=== PATIENT | male | born 1950 | race Caucasian/White ===

== ENCOUNTER 2018-01-20 10:38 | Day surgery (SDC) | payer MEDICARE ==
[~2018-01-20 10:38] MED LIST: CHLORHEXIDINE 0.12% 15 ML MOUTHWASH. SWSP; DEXAMETHASONE SOD PHOS 20 MG/5 ML VIAL.; GELATIN SPONGE SIZE 12-7MM SPONGE.; LIDOCAINE 1% PF 2 ML VIAL. ID; LIDOCAINE 1% PF 5 ML VIAL.; MORPHINE SULFATE 4 MG/ML DISP.SYRIN. IV; ONDANSETRON PF 4 MG/2 ML VIAL.; ONDANSETRON PF 4 MG/2 ML VIAL. IV; PROCHLORPERAZINE 10 MG/2 ML VIAL. IV; PROPOFOL 20 ML IV; ROCURONIUM 50 MG/5 ML VIAL.; SEVOFLURANE 31 TO 60 MINUTES. IH; SUCCINYLCHOLINE 200 MG/10 ML VIAL.; ceFAZolin 2GM PREMIX 2 GM/50 ML BAG IV; fentaNYL PF VIAL 100 MCG/2 ML VIAL; fentaNYL PF VIAL 100 MCG/2 ML VIAL IV
[2018-01-20 11:22] LABS: POC GLUCOSE 132 mg/dL (70-99)
[2018-01-20] MEDS: IV RINGERS,LACTATED 1000ML 1,000 ML IV (11:25)
[2018-01-20] MEDS ORDERED: ESMOLOL 100 MG/10 ML VIAL. IV (12:25)
[2018-01-20] MEDS: BUPIVAC MPF-EPI 0.5%-1:200000 30 ML VIAL. INJ (12:29)
[2018-01-20] MEDS: GELATIN SPONGE SIZE 12-7MM SPONGE. TP (12:29)
[2018-01-20] MEDS ORDERED: DESFLURANE 31 TO 60 MINUTES IH (12:31)
[2018-01-20] MEDS ORDERED: PROPOFOL 20 ML IV (13:05)
[2018-01-20] MEDS: HYDROcodone/APAP 5/325MG 1 TAB TABLET PO (14:05)
[2018-01-20 14:12] LABS: POC GLUCOSE 126 mg/dL (70-99)
== END 2018-01-20 14:48 | disposition home or self-care (01) ==
LOC: SURG 10:38
DX: I25.10 Atherosclerotic heart disease of native coronary artery without angina pectoris (principal); I10 Essential (primary) hypertension; J44.9 Chronic obstructive pulmonary disease, unspecified; G47.33 Obstructive sleep apnea (adult) (pediatric); E11.9 Type 2 diabetes mellitus without complications; K02.9 Dental caries, unspecified; K21.9 Gastro-esophageal reflux disease without esophagitis; E78.00 Pure hypercholesterolemia, unspecified; E66.9 Obesity, unspecified; M19.90 Unspecified osteoarthritis, unspecified site; F32.9 Major depressive disorder, single episode, unspecified; Z87.891 Personal history of nicotine dependence; Z85.07 Personal history of malignant neoplasm of pancreas; Z88.8 Allergy status to other drugs, medicaments and biological substances
CPT/HCPCS: 41874; 82962; J0330; J0690; J1100; J2405; J2704; J3010; J3490